=== PATIENT | male | born 1985 | race Caucasian/White ===

== ENCOUNTER 2021-03-03 21:32 | Emergency (ER) | payer BC ==
[2021-03-03 21:43] VITALS: BP 116/75; PULSE 68; TEMP 98.1; BMI 41.3
== END 2021-03-03 22:34 | disposition home or self-care (01) ==
LOC: JERFT 21:32
DX: Z11.52 Encounter for screening for COVID-19 (principal)
CPT/HCPCS: 99283-25; C9803; U0003; U0005

== ENCOUNTER 2023-01-20 01:45 | Emergency (ER) | payer BC, OTHER ==
[2023-01-20 01:51] VITALS: BP 119/83; PULSE 90; RESP 18; TEMP 97.9; BMI 44.7
[2023-01-20] MEDS ORDERED: ACETAMINOPHEN 1000 MG/100 ML BAG IVPB ONE (02:11)
[2023-01-20] MEDS ORDERED: KETOROLAC TROMETHAMINE 30 MG/1 ML VIAL IM ONE (02:11)
[2023-01-20] MEDS ORDERED: LIDOCAINE 5% TOPICAL PATCH TP ONE (02:11)
[2023-01-20] MEDS ORDERED: ACETAMINOPHEN 500 MG TABLET (FP) PO ONE (02:25)
[2023-01-20] MEDS ORDERED: KETOROLAC TROMETHAMINE 30 MG/1 ML VIAL ONE (02:26)
[2023-01-20] MEDS ORDERED: LIDOCAINE 5% TOPICAL PATCH ONE (02:26)
[2023-01-20] MEDS ORDERED: ACETAMINOPHEN 500 MG TABLET (FP) ONE (02:26)
[2023-01-20] MEDS ORDERED: LIDOCAINE PATCH REMOVAL MC SCH (22:00)
== END 2023-01-20 04:24 | disposition home or self-care (01) ==
LOC: JER 01:45
PROC: 3E0233Z Introduction of Anti-inflammatory into Muscle, Percutaneous Approach (ICD-10-PCS; principal; 2023-01-20)
DX: M54.50 Low back pain, unspecified (principal); X50.0XXA Overexertion from strenuous movement or load, initial encounter; Y99.0 Civilian activity done for income or pay
CPT/HCPCS: 72100-TC-FY; 99284-25

== ENCOUNTER 2024-05-31 01:01 | Emergency (ER) | payer OTHER ==
[2024-05-31 01:24] VITALS: BP 134/88; PULSE 105; RESP 20; TEMP 98.8; BMI 47.2
[2024-05-31] MEDS ORDERED: IBUPROFEN 600 MG TABLET (FP) PO ONE (01:31)
[2024-05-31] MEDS ORDERED: LIDOCAINE 4% PATCH TP ONE (01:31)
[2024-05-31] MEDS: LIDOCAINE 5% TOPICAL PATCH TP ONE (01:33)
[2024-05-31] MEDS: IBUPROFEN 600 MG TABLET (FP) PO ONE (01:33)
[2024-05-31] MEDS ORDERED: LIDOCAINE PATCH REMOVAL MC SCH (22:00)
== END 2024-05-31 02:34 | disposition home or self-care (01) ==
LOC: JER 01:01
DX: M25.512 Pain in left shoulder (principal); M25.412 Effusion, left shoulder; W00.0XXA Fall on same level due to ice and snow, initial encounter; Y92.481 Parking lot as the place of occurrence of the external cause
CPT/HCPCS: 73030-TC-LT-FY; 99283-25